=== PATIENT | female | born 2000 | race Caucasian/White ===

== ENCOUNTER 2022-07-15 14:20 | Inpatient (IN) | payer OTHER, SELFPAY ==
[2022-07-15] VITALS (18 sets, daily range): BP systolic 93–123; BP diastolic 56–85; PULSE 94–118; RESP 14–24; TEMP 36.2–37.1; O2SAT 96–100; BMI 35.3
[2022-07-15] MEDS: Lactated Ringers 1,000 ML 999 ML IV (14:22)
[2022-07-15] MEDS: Oxytocin 10 UNITS/ML Vial IM (14:30)
[2022-07-15] MEDS: Methylergonovine 0.2 MG/ML Ampul IM (14:34)
--- NOTE | 2022-07-15 14:50 | HP.PCM.OB_ITS ---
History and Physical Date of Admission: 07/15/22 HPI: 21-year-old G2, P2 day 0 status post with 9-minute shoulder dystocia presenting with hemorrhage. Patient had delivered this morning. Placenta delivered after 8 minutes. [facility]. Baby was transported to [facility] this morning, subsequently transported to [facility]. Patient transported and arrived to this afternoon. Patient lightheaded and having discomfort on admission. No fevers or chills, nausea or vomiting, diarrhea or constipation. Patient received several different herbal compounds after delivery to attempt to assist with bleeding. 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 Difficult labor and delivery per cleat layer. Patient had severe hip issues after delivery with difficulty walking and baby had seizures developing day 1. G2: Current today with 9-minute shoulder dystocia. No complications prior to delivery per pin maker. Medical history: Denies history of hypertension, thyroid issues, diabetes Surgical history: Denies Medications: Denies Allergies: Denies Family history: Denied history of complications with anesthesia, no other known medical history Review of system: Negative otherwise stated above Physical exam: Vital signs on admission: Pending being charted. Patient was hypotensive and tachycardic General: Patient lying flat in bed, pale, uncomfortable Cardiorespiratory: No increased effort Abdomen: Soft, tender Vaginal exam: No external lacerations to perineum noted, no labial hematoma or lacerations. On bimanual exam large amount of clot removed. Extremities: No edema Musculoskeletal: Movement equal throughout all extremities Neurologic: Cranial nerves II through XII grossly intact, no focal deficits Assessment & Plan Assessment/Plan (1) hemorrhage: PLAN: 21-year-old day 0 admitted with hemorrhage. ?Present within minutes upon patient's arrival. Patient seen and examined. Bedside ultrasound completed after exam completed noting large amount of clot in the endometrial cavity. 2 IV lines placed. Patient was given IM Methergine x1 and IM 10 milliunits of Pitocin. Patient typed and crossed for 2 units of blood with plan to transfuse immediately. Labs ordered and drawn: CBC, CMP, PT/INR, PTT, fibrinogen. Based on the physical exam, bedside ultrasound, vital signs, patient discomfort and pallor decision for surgical management was made. ?Plan for exam under anesthesia, suction dilation and curettage, possible laparotomy, possible hysterectomy. Explained to patient and and additional family at bedside that it was necessary to complete a thorough vaginal examination and remove blood clot from the endometrial cavity in order to help identify source and cause of bleeding and decrease bleeding. Discussed possibility of laparotomy and possible hysterectomy depending on findings and if bleeding does not able to be controlled with other measures would proceed for hysterectomy. All risk, benefits, alternatives were discussed with the patient and family. Risks include but are not limited to: Risk of bleeding to the point of transfusion, infection, injury to surrounding tissue including bowel/bladder requiring prolonged Gaming catheter use, VTE, ICU admission. All questions answered. Patient aware and consented. Patient consented and consented for blood products. ?Recommended transfusion of 2 units of PRBCs immediately. ?Worked in conjunction with bedside RN and nurse managers to coordinate surgical readiness and patient care. Patient taken back to the operating room for surgery.
[2022-07-15 14:51] LABS: Absolute Lymphocyte Count 1.19 X10^3/uL (0.83-4.51); Absolute Neutrophil Count 23.3 X10^3/uL (2.0-7.7); Basophil# 0.05 X10^3/uL; Basophil% 0.2 % (0-1); Eosinophil# 0.03 X10^3/uL; Eosinophils% 0.1 % (0-5); Hematocrit 30.2 % (37-47); Hemoglobin 10.3 g/dL (12.0-15.0); Lymphocyte # 1.19 X10^3/ul (0.83-4.51); Lymphocyte % 4.3 % (19-41); Mean Corp Hgb Conc 34.1 g/dL (32-36); Mean Corpuscular Hgb 29.2 pg (27.0-32.0); Mean Corpuscular Volume 85.6 fL (81-99); Mean Platelet Vol. 11.5 fl (6.2-12.0); Monocyte# 2.71 X10^3/uL; Monocyte% 9.8 % (0-10); NRBC Flagged by Analyzer 0 % (0-5); Neutrophil # 23.26 X10^3/uL (2.7-7.7); Neutrophil % 84.5 % (47-70); POSITIVE DIFFERENTIAL YES; Platelet Count 236 K/mm3 (150-450); RBC Distribution Width CV 16.1 % (11.6-14.6); RBC Distribution Width SD 50.2 fl (35.1-43.9); Red Blood Count 3.53 M/mm3 (4.2-5.4); White Blood Count 27.5 K/mm3 (4.4-11.0)
[2022-07-15 14:56] LABS: International Normalized Ratio 1.2; Prothrombin Time (Protime)PT. 14.7 SECONDS (11.7-14.9)
[2022-07-15 14:57] LABS: Partial Thromboplast Time 34.8 Seconds (24.1-36.2)
[2022-07-15 14:58] LABS: Fibrinogen 302 mg/dl (203-444)
[2022-07-15 15:04] LABS: ALB/GLOB Ratio 0.7 RATIO (0.9-2.4); AST(SGOT) 28 U/L (15-37); Alanine Aminotransfer ALT/SGPT 22 U/L (13-56); Albumin, Serum 2.1 g/dL (3.2-5.0); Alkaline Phosphatase 109 U/L (45-117); Anion Gap 10 (5-15); BUN 9 mg/dL (7-18); BUN/Creat Ratio 9.5 RATIO (10-20); Calcium,Total 8.1 mg/dL (8.5-10.1); Chloride 103 mmol/L (98-107); Creatinine, Serum 0.94 mg/dL (0.55-1.02); EST Glomerular Filtration Rate 78 mL/min (>60); Est Glom Filt Rate - Afr Amer 94 mL/min (>60); Estimated Creatinine Clearance 73.62 ml/min; Globulin 3.1 g/dL (2.2-4.2); Glucose 213 mg/dL (74-106); Potassium 4.3 mmol/L (3.5-5.1); Protein, Total 5.2 g/dL (6.4-8.2); Sodium Level 132 mmol/L (136-145)
[2022-07-15] MEDS: Cefazolin 2 GM in 0.9% Normal Saline 100 ML IV (15:05)
[2022-07-15 15:19] LABS: Differential Indicated SCAN CRITERIA MET
[2022-07-15 16:22] LABS: Anisocytosis RARE; Differential Comment SEE COMMENTS; Platelet Estimate ADEQUATE (ADEQ); Red Cell Morphology N CHROM NORMAL (NORM C&C)
[2022-07-15] MEDS: morphine 10 MG/ML Syringe 5 MG IV (17:33)
--- NOTE | 2022-07-15 17:47 | PCM.OPRPT ---
Report of Operation Date of Procedure: 07/15/22 Pre-Operative Diagnosis: hemorrhage Post-Operative Diagnosis: hemorrhage, cervical to uterine anterior rupture, posterior vaginal rupture Surgery/Procedure Performed:: Exam under anesthesia, exploratory laparotomy, repair of vaginal, cervical, uterine rupture Description of Surgical Findings:: See operative report for details. Surgeon: Nicolette Zamora corrosion technician: Colin Zamora Type of Anesthesia: General Specimen's removed: None Estimated Blood Loss (mL): 2L Fluids Replaced: 1500cc IVF, 2uPRBC Description of Procedure: Patient taken to the operating room and placed under general anesthesia. Patient placed in the dorsal lithotomy position prepped and draped in the usual sterile fashion. Blood clots removed from vaginal canal. No vaginal or perineal lacerations noted, no labial lacerations noted. No labial hematomas noted. Unable to fully visualize cervix after weighted speculum placed in posterior vagina and right angle retractor placed anteriorly. Bimanual exam completed again with palpation of posterior cervix, able to palpate lower portion of uterus and muscle. Anteriorly and towards the patient's right palpated defect in the cervix. When palpating this area appeared to be able to palpate directly to the anterior abdominal wall. At that time there was concern for uterine rupture. Decision for laparotomy and possible hysterectomy made. Patient draping removed. Placed in supine position. Called for assistance from Dr. Colin Zamora and NEENA. Prior to his arrival repeat vaginal exam was completed with the same above findings. Dr. Colin Zamora also did a vaginal exam prior to laparotomy. Decision for laparotomy confirmed after exam. Patient prepped and draped in the usual sterile fashion. Pfannenstiel skin incision made with scalpel carried down through subcutaneous tissue. Fascia nicked on either side of midline and extended with Calles scissors. Mitch clamps placed the superior fascial edge which was tented up and underlying rectus muscles were dissected off bluntly and sharply at midline. Mitch clamps moved to the inferior fascial edge which was tented up and underlying rectus muscles were dissected off bluntly and sharply at midline. Rectus muscles were noted to be . Peritoneum identified and entered using hemostats and further blunt dissection. Upon entry to abdominal cavity noted distended vesicouterine peritoneum which had ballooned significantly from the lower portion of bladder to midway to the the uterine fundus. This extended laterally as well towards the broad ligaments. Gaming bulb palpated low in the pelvis. Bladder blade placed. This vesicouterine peritoneum identified at the junction to the uterine serosa. This was incised with Metzenbaum scissors and careful dissection was completed across the anterior uterus. Blood clot removed from the space. Dissection of the vesicouterine peritoneum allowed exposure of area of rupture anteriorly. Thorough examination noted that the rupture included the cervix towards the left vagina inferiorly and towards the lower uterine segment, including a small portion of this. Uterus was exteriorized and inspected posteriorly. Uterus appeared intact posteriorly. Posteriorly vaginal defect was also palpated. This was then confirmed with palpation anteriorly inside vagina through anterior defect and visualization. Vaginal defect grasped with Allis clamps from within the vaginal canal. Closed with running stitch. Oozing noted, hemostatic with [id number] stitch. Uterus examined posteriorly: Vaginal defect no longer noted on visualization or palpation. [place] of anterior cervix/vaginal rupture identified and grasped with Allis clamps. This was closed with 1 [id number] stitch at the left inferior apex followed by additional [id number]-[id number] stitches. Left apical region was imbricated. Interrupted imbricating stitches placed at the right apex at the level of the cervix with hemostasis noted. Uterus then inspected posteriorly again, noting no defects. Visualization of anterior rupture repair completed., Noting hemostasis. Floseal placed. No evidence of broad ligament hematoma on either side. Uterus replaced into the abdominal cavity. Inspection completed again noting hemostasis. Peritoneum identified and closed in a running stitch. Fascia closed with a running stitch. Subcutaneous tissue irrigated and closed with interrupted stitches. Skin closed with a running subcuticular stitch. Vaginal exam completed with no vaginal defects noted. Rectal exam completed with no defects noted. At the end of the procedure all needle, lap, sponge counts were correct. Patient received 2 units of packed red blood cells intraoperatively. She also received tranexamic acid intraoperatively. We will plan to repeat CBC and BMP this evening at 2000, labs to repeat in the morning as well. Patient is to receive antibiotics for 24 hours. We will plan for Lovenox tomorrow. Maintain Gaming catheter. No fundal checks to be completed. Maintain IV. No further need for uterotonic agents as hemorrhage was secondary to cervical and vaginal defects. Plan reviewed with bedside RN. Admit VTE Documentation VTE Mechan Device Prophylaxis: SCD's
[2022-07-15] MEDS: Ketorolac 30 MG/ML Syringe IV ×2 (18:33→23:59)
[2022-07-15] MEDS: Lactated Ringers 1,000 ML 100 ML IV (18:33)
--- NOTE | 2022-07-15 19:41 | NURSING ---
no fundal exam performed per orders from Jakob cuadra
[2022-07-15] MEDS: HYDROmorphone 1 MG/ML Syringe IV (20:24)
[2022-07-15 20:36] LABS: Absolute Lymphocyte Count 1.23 X10^3/uL (0.83-4.51); Absolute Neutrophil Count 23.4 X10^3/uL (2.0-7.7); Basophil# 0.05 X10^3/uL; Basophil% 0.2 % (0-1); Eosinophil# 0.11 X10^3/uL; Eosinophils% 0.4 % (0-5); Hemoglobin 10.1 g/dL (12.0-15.0); Lymphocyte # 1.23 X10^3/ul (0.83-4.51); Lymphocyte % 4.6 % (19-41); Mean Corp Hgb Conc 32.6 g/dL (32-36); Mean Corpuscular Hgb 28.5 pg (27.0-32.0); Mean Corpuscular Volume 87.3 fL (81-99); Mean Platelet Vol. 11.1 fl (6.2-12.0); Monocyte# 1.81 X10^3/uL; Monocyte% 6.7 % (0-10); NRBC Flagged by Analyzer 0 % (0-5); Neutrophil # 23.43 X10^3/uL (2.7-7.7); Neutrophil % 87.1 % (47-70); POSITIVE DIFFERENTIAL YES; Platelet Count 186 K/mm3 (150-450); RBC Distribution Width CV 17.2 % (11.6-14.6); RBC Distribution Width SD 54.1 fl (35.1-43.9); Red Blood Count 3.55 M/mm3 (4.2-5.4); White Blood Count 26.9 K/mm3 (4.4-11.0)
[2022-07-15 20:43] LABS: Anion Gap 8 (5-15); BUN 9 mg/dL (7-18); BUN/Creat Ratio 12.7 RATIO (10-20); Calcium,Total 7.3 mg/dL (8.5-10.1); Chloride 107 mmol/L (98-107); Creatinine, Serum 0.71 mg/dL (0.55-1.02); EST Glomerular Filtration Rate 108 mL/min (>60); Est Glom Filt Rate - Afr Amer 130 mL/min (>60); Estimated Creatinine Clearance 97.47 ml/min; Glucose 165 mg/dL (74-106); Potassium 4.8 mmol/L (3.5-5.1); Sodium Level 134 mmol/L (136-145)
[2022-07-15 20:45] LABS: Differential Indicated SCAN CRITERIA MET
[2022-07-15 21:02] LABS: Differential Comment SEE COMMENTS; Platelet Estimate ADEQUATE (ADEQ)
[2022-07-15 21:03] LABS: Anisocytosis RARE; Red Cell Morphology N CHROM NORMAL (NORM C&C)
[2022-07-15] MEDS: Acetaminophen 500 MG Tablet 1000 MG PO (22:18)
--- NOTE | 2022-07-15 22:32 | PCM.PN.BLA ---
Progress Note Labs stable at 2000.Repeat pending in AM. Leukocytosis persistent likely secondary to acute stress reaction. No evidence of infection at this time.
[2022-07-16] VITALS (46 sets, daily range): BP systolic 104–132; BP diastolic 54–76; PULSE 92–144; RESP 16–20; TEMP 36.4–37.3; O2SAT 90–100
[2022-07-16] MEDS: Acetaminophen 500 MG Tablet 1000 MG PO ×3 (05:11→18:22)
--- NOTE | 2022-07-16 05:20 | PCM.PN.OB ---
Subjective Subjective Patient resting quietly in bed. Reports abdominal tenderness that is controlled with pain medication. Patient is pumping and hand expressing. Objective Data Objective Data Vital Signs: Vital Signs Temp Pulse Resp BP Pulse Ox O2 Del Method 97.2 F L 96 20 H 106/55 L 97 Room Air 07/15/22 19:39 07/16/22 05:14 07/16/22 05:14 07/16/22 05:14 07/15/22 20:30 07/16/22 05:14 Oxygen Delivery Method Room Air Weight: 87.543 kg Body Mass Index (BMI) 35.3 Intake & Output: Intake and Output for Last 24 Hours 07/14/22 07/15/22 07/16/22 23:59 23:59 23:59 Intake Total 1228.45 / 1228.45 1050 / 1050 Output Total 600 / 600 300 / 300 Balance 628.45 / 628.45 750 / 750 Lab / Micro Data Attestation: I reviewed the patient's lab results. Result Diagrams: 07/15/22 20:15 07/15/22 20:15 Labs: Laboratory Results - last 24 hr 07/15/22 14:30: WBC 27.5 H, RBC 3.53 L, Hgb 10.3 L, Hct 30.2 L, MCV 85.6, MCH 29.2, MCHC 34.1, RDW Std Deviation 50.2 H, RDW Coeff of Daniel 16.1 H, Plt Count 236, MPV 11.5, Immature Gran % (Auto) 1.100 H, Neut % (Auto) 84.5 H, Lymph % (Auto) 4.3 L, Wilson % (Auto) 9.8, Eos % (Auto) 0.1, Baso % (Auto) 0.2, Absolute Neuts (auto) 23.3 H, Absolute Lymphs (auto) 1.19, Nucleated RBC % 0, Differential Comment SEE COMMENTS, Diff Path Review May foll, Platelet Estimate ADEQUATE, RBC Morphology N CHROM, Anisocytosis RARE 07/15/22 14:30: PT 14.7, INR 1.2, APTT 34.8, Fibrinogen 302 07/15/22 14:30: Sodium 132 L, Potassium 4.3, Chloride 103, Carbon Dioxide 19.0 L, Anion Gap 10, BUN 9, Creatinine 0.94, Estim Creat Clear Calc 73.62, Est GFR (MDRD) Af Amer 94, Est GFR (MDRD) Non-Af 78, BUN/Creatinine Ratio 9.5 L, Glucose 213 H, Calcium 8.1 L, Total Bilirubin 0.30, AST 28, ALT 22, Alkaline Phosphatase 109, Total Protein 5.2 L, Albumin 2.1 L, Globulin 3.1, Albumin/Globulin Ratio 0.7 L 07/15/22 14:30: Blood Type O POSITIVE, Antibody Screen NEGATIVE, Crossmatch See Detail 07/15/22 20:15: Sodium 134 L, Potassium 4.8, Chloride 107, Carbon Dioxide 19.0 L, Anion Gap 8, BUN 9, Creatinine 0.71, Estim Creat Clear Calc 97.47, Est GFR (MDRD) Af Amer 130, Est GFR (MDRD) Non-Af 108, BUN/Creatinine Ratio 12.7, Glucose 165 H, Calcium 7.3 L 07/15/22 20:15: WBC 26.9 H, RBC 3.55 L, Hgb 10.1 L, Hct 31.0 L, MCV 87.3, MCH 28.5, MCHC 32.6, RDW Std Deviation 54.1 H, RDW Coeff of Daniel 17.2 H, Plt Count 186, MPV 11.1, Immature Gran % (Auto) 1.000 H, Neut % (Auto) 87.1 H, Lymph % (Auto) 4.6 L, Wilson % (Auto) 6.7, Eos % (Auto) 0.4, Baso % (Auto) 0.2, Absolute Neuts (auto) 23.4 H, Absolute Lymphs (auto) 1.23, Nucleated RBC % 0, Differential Comment SEE COMMENTS, Diff Path Review May foll, Platelet Estimate ADEQUATE, RBC Morphology N CHROM, Anisocytosis RARE Physical Exam Const alert, oriented x3 and no apparent distress HEENT normocephalic Head and Scalp: atraumatic Neck full ROM Resp normal respiratory effort Cardio regular rate GI normal to inspection, nondistended, normoactive bowel sounds GI Narrative: Uterus 2 cm below umbilicus, dressing clean and dry, mildly tender Back/Spine normal ROM Extremity normal to inspection Extremity Narrative: Minimal pedal edema Neuro no focal motor deficits and no sensory deficits noted Psych mental status grossly normal and affect normal Assessment & Plan (1) hemorrhage: PLAN: day 1 status post at [facility] with prolonged shoulder dystocia. Postoperative day 1 status post exam under anesthesia and exploratory laparotomy with repair of cervical/uterine/vaginal rupture. ?Patient received 2 units of PRBCs yesterday. CBC was stable postoperatively. Repeat pending this morning. Vital stable. ?Patient is pumping. Baby is in [facility]. ?Consider removing Gaming catheter later this afternoon. ?Encourage patient to get up to chair today. ?Continue Mefoxin for 24 hours. Diet: Plan to advance today IV fluids: LR 100 cc/hr DVT prophylaxis: Continue SCDs, Lovenox to start today Dispo: Continued inpatient management.
[2022-07-16 05:34] LABS: Hematocrit 24.5 % (37-47); Hemoglobin 8.1 g/dL (12.0-15.0); Mean Corp Hgb Conc 33.1 g/dL (32-36); Mean Corpuscular Hgb 28.1 pg (27.0-32.0); Mean Corpuscular Volume 85.1 fL (81-99); Mean Platelet Vol. 10.8 fl (6.2-12.0); Platelet Count 159 K/mm3 (150-450); RBC Distribution Width CV 17.2 % (11.6-14.6); RBC Distribution Width SD 53.2 fl (35.1-43.9); Red Blood Count 2.88 M/mm3 (4.2-5.4); White Blood Count 17.8 K/mm3 (4.4-11.0)
[2022-07-16] MEDS: Lactated Ringers 1,000 ML 100 ML IV (05:51)
[2022-07-16 06:07] LABS: Anion Gap 7 (5-15); BUN 12 mg/dL (7-18); BUN/Creat Ratio 15.7 RATIO (10-20); Calcium,Total 7.8 mg/dL (8.5-10.1); Chloride 106 mmol/L (98-107); Creatinine, Serum 0.76 mg/dL (0.55-1.02); EST Glomerular Filtration Rate 99 mL/min (>60); Est Glom Filt Rate - Afr Amer 120 mL/min (>60); Estimated Creatinine Clearance 91.05 ml/min; Glucose 112 mg/dL (74-106); Potassium 4.3 mmol/L (3.5-5.1); Sodium Level 135 mmol/L (136-145)
[2022-07-16] MEDS: Ketorolac 30 MG/ML Syringe IV ×2 (06:39→14:23)
[2022-07-16] MEDS: Enoxaparin 40 MG/0.4 ML Syringe SC (11:18)
[2022-07-16] MEDS: Senna/Docusate Sodium 1 Tablet PO (11:18)
[2022-07-16 13:35] LABS: Absolute Lymphocyte Count 1.93 X10^3/uL (0.83-4.51); Absolute Neutrophil Count 10.9 X10^3/uL (2.0-7.7); Basophil# 0.03 X10^3/uL; Basophil% 0.2 % (0-1); Eosinophil# 0.04 X10^3/uL; Eosinophils% 0.3 % (0-5); Hematocrit 22.3 % (37-47); Hemoglobin 7.6 g/dL (12.0-15.0); Lymphocyte # 1.93 X10^3/ul (0.83-4.51); Lymphocyte % 13.4 % (19-41); Mean Corp Hgb Conc 34.1 g/dL (32-36); Mean Corpuscular Hgb 29.1 pg (27.0-32.0); Mean Corpuscular Volume 85.4 fL (81-99); Monocyte# 1.42 X10^3/uL; Monocyte% 9.8 % (0-10); NRBC Flagged by Analyzer 0 % (0-5); Neutrophil % 75.4 % (47-70); Platelet Count 153 K/mm3 (150-450); RBC Distribution Width CV 17.3 % (11.6-14.6); RBC Distribution Width SD 53.2 fl (35.1-43.9); Red Blood Count 2.61 M/mm3 (4.2-5.4); White Blood Count 14.5 K/mm3 (4.4-11.0)
[2022-07-16 14:02] LABS: ALB/GLOB Ratio 0.6 RATIO (0.9-2.4); AST(SGOT) 31 U/L (15-37); Alanine Aminotransfer ALT/SGPT 21 U/L (13-56); Albumin, Serum 1.7 g/dL (3.2-5.0); Alkaline Phosphatase 75 U/L (45-117); Anion Gap 5 (5-15); BUN 13 mg/dL (7-18); Chloride 108 mmol/L (98-107); Creatinine, Serum 0.59 mg/dL (0.55-1.02); EST Glomerular Filtration Rate 133 mL/min (>60); Est Glom Filt Rate - Afr Amer 161 mL/min (>60); Estimated Creatinine Clearance 117.29 ml/min; Globulin 2.8 g/dL (2.2-4.2); Glucose 91 mg/dL (74-106); Potassium 4.3 mmol/L (3.5-5.1); Protein, Total 4.5 g/dL (6.4-8.2); Sodium Level 137 mmol/L (136-145)
--- NOTE | 2022-07-16 16:10 | CASEMGMT ---
Social Work Labor and Delivery Unit Consult received for Bereavement/Loss/Grief. Records reviewed and noted patient/mother of baby (DOROTHY) with an out of hospital delivery, reported 9 minute shoulder dystocia, infant development of seizures with subsequent admission into the [facility] and then to main [facility]. Met with MOB this date, introducing to self and social work role. MOB reports her mother is with MOB but had stepped out of the room briefly. Explored how MOB is doing. MOB reports to be getting along, that had a scare with the baby this morning but has reportedly learned from the father of baby (FOB) that things are not as bad as thought this morning. MOB reports FOB is on the way back to [place], so MOB and FOB will be able to better talk about what is going on. Explored with MOB how MOB's health is feeling right now, and whether MOB has awareness at this point regarding recommendations for MOB's future health and recovery. MOB reports the doctor will be in this evening to talk about MOB's health and will also know more. MOB shared she and FOB have been about about 2 years, have a 12 month old daughter Sierra at home and now baby boy (likely to be named Onel). MOB reports may have had some baby blues after Sierra was born, as Sierra was a fussy baby for the first three months of life while on phenobarbital. MOB reports Sierra also had seizures shortly after due to lack of oxygen to the brain during delivery. MOB reports once the phenobarbital was stopped Sierra was less fussy and MOB's emotions felt better. MOB reports to have a good support system from her family: parents, sister, FOB. MOB reports her sister is watching Sierra right now. MOB denies any abuse issues with the FOB. Attempted to educate MOB to depression and anxiety, risk factors, and is common after having a baby and going through unexpected events during labor and delivery. MOB accepted information on PPD/PPA. DOROTHY's mother did arrive back to room, and then shortly after the FOB, MOB's sister and Sierra. Emotional support offered to patient and family. MOB plans to discharge home when able. Social remains available for support as needed/indicated during hospital stay. -TO Waite, BLOCKING MACHINE TENDER
[2022-07-16] MEDS: 0.9% Normal Saline 1,000 ML 30 ML IV (17:00)
[2022-07-16] MEDS: Ibuprofen 600 MG Tablet PO (18:22)
[2022-07-16] MEDS: 0.9% Saline Lock 10 ML Syringe IV (19:38)
[2022-07-17] VITALS (9 sets, daily range): BP systolic 101–122; BP diastolic 51–67; PULSE 69–116; RESP 16–17; TEMP 36.3–37.3; O2SAT 96–99
[2022-07-17] MEDS: Ibuprofen 600 MG Tablet PO ×4 (00:27→18:25)
[2022-07-17] MEDS: Acetaminophen 500 MG Tablet 1000 MG PO ×4 (00:27→18:25)
[2022-07-17 06:55] LABS: Absolute Lymphocyte Count 2.13 X10^3/uL (0.83-4.51); Absolute Neutrophil Count 11.1 X10^3/uL (2.0-7.7); Basophil# 0.03 X10^3/uL; Basophil% 0.2 % (0-1); Eosinophil# 0.17 X10^3/uL; Eosinophils% 1.1 % (0-5); Hematocrit 22.4 % (37-47); Hemoglobin 7.5 g/dL (12.0-15.0); Lymphocyte # 2.13 X10^3/ul (0.83-4.51); Lymphocyte % 14.3 % (19-41); Mean Corp Hgb Conc 33.5 g/dL (32-36); Mean Corpuscular Hgb 29.3 pg (27.0-32.0); Mean Corpuscular Volume 87.5 fL (81-99); Mean Platelet Vol. 10.8 fl (6.2-12.0); Monocyte% 8.1 % (0-10); NRBC Flagged by Analyzer 0 % (0-5); Neutrophil % 74.6 % (47-70); Platelet Count 146 K/mm3 (150-450); RBC Distribution Width CV 17.3 % (11.6-14.6); RBC Distribution Width SD 56.2 fl (35.1-43.9); Red Blood Count 2.56 M/mm3 (4.2-5.4); White Blood Count 14.9 K/mm3 (4.4-11.0)
--- NOTE | 2022-07-17 08:23 | PN.OBGYN_ITS ---
Subjective Subjective No complaints. Denies dizziness, headaches, visual changes, weakness. Pain well controlled. Voiding spontaneously. Tolerating regular diet Objective Data Objective Data Vital Signs: Vital Signs Temp Pulse Resp BP Pulse Ox O2 Del Method 97.4 F L 108 H 16 112/63 96 Room Air 07/17/22 02:00 07/17/22 05:39 07/17/22 05:39 07/17/22 05:39 07/17/22 05:39 07/17/22 05:39 Oxygen Delivery Method Room Air Weight: 193 lb Body Mass Index (BMI) 35.3 Intake & Output: Intake and Output for Last 24 Hours 07/15/22 07/16/22 07/17/22 23:59 23:59 23:59 Intake Total 1228.45 / 1228.45 3614.17 / 3614.17 Output Total 600 / 600 1800 / 1800 Balance 628.45 / 628.45 1814.17 / 1814.17 Lab / Micro Data Result Diagrams: 07/17/22 06:45 07/16/22 13:25 Labs: Laboratory Results - last 24 hr 07/16/22 13:25: WBC 14.5 H, RBC 2.61 L, Hgb 7.6 L, Hct 22.3 L, MCV 85.4, MCH 29.1, MCHC 34.1, RDW Std Deviation 53.2 H, RDW Coeff of Daniel 17.3 H, Plt Count 153, MPV 11.0, Immature Gran % (Auto) 0.900, Neut % (Auto) 75.4 H, Lymph % (Auto) 13.4 L, [place] % (Auto) 9.8, Eos % (Auto) 0.3, Baso % (Auto) 0.2, Absolute Neuts (auto) 10.9 H, Absolute Lymphs (auto) 1.93, Nucleated RBC % 0 07/16/22 13:25: Sodium 137, Potassium 4.3, Chloride 108 H, Carbon Dioxide 24.0, Anion Gap 5, BUN 13, Creatinine 0.59, Estim Creat Clear Calc 117.29, Est GFR (MDRD) Af Amer 161, Est GFR (MDRD) Non-Af 133, BUN/Creatinine Ratio 22.0 H, Glucose 91, Calcium 8.0 L, Total Bilirubin 0.20, AST 31, ALT 21, Alkaline Phosphatase 75, Total Protein 4.5 L, Albumin 1.7 L, Globulin 2.8, Albumin/Globulin Ratio 0.6 L 07/16/22 14:30: Crossmatch See Detail 07/17/22 06:45: WBC 14.9 H, RBC 2.56 L, Hgb 7.5 L, Hct 22.4 L, MCV 87.5, MCH 29.3, MCHC 33.5, RDW Std Deviation 56.2 H, RDW Coeff of Daniel 17.3 H, Plt Count 146 L, MPV 10.8, Immature Gran % (Auto) 1.700 H, Neut % (Auto) 74.6 H, Lymph % (Auto) 14.3 L, [place] % (Auto) 8.1, Eos % (Auto) 1.1, Baso % (Auto) 0.2, Absolute Neuts (auto) 11.1 H, Absolute Lymphs (auto) 2.13, Nucleated RBC % 0 Physical Exam Const alert, oriented x3, no apparent distress, average body habitus, healthy appearing and well nourished HEENT normocephalic and moist oral mucous membranes Eyes PERRL Neck full ROM Resp normal respiratory effort and no retractions GI GI Narrative: Soft, nontender, bandage clean dry and intact Extremity normal to inspection, full ROM and no clubbing, cyanosis or edema Skin no rashes or lesions noted Neuro moves all extremities and no focal motor deficits Psych mental status grossly normal, affect normal, speech normal and activity/motor behavior normal Assessment & Plan (1) hemorrhage: PLAN: day 2 status post birthing center delivery with plastic tile layer complicated by shoulder dystocia. Postop day 2 of exploratory laparotomy and repair of uterine/cervical/vaginal abruption. Status post 3 units of packed red blood cells. Patient asymptomatic. We will continue to monitor hemoglobin, repeat hemoglobin at noon today. Status post Mefoxin x24 hours. Discussed clinical plan for today. Discussed evaluation at least to this evening and likely home tomorrow
[2022-07-17 09:58] LABS: Pathologist Review Reviewed
[2022-07-17 09:59] LABS: Pathologist Review Reviewed
[2022-07-17] MEDS: Enoxaparin 40 MG/0.4 ML Syringe SC (10:08)
[2022-07-17] MEDS: Senna/Docusate Sodium 1 Tablet PO (10:09)
[2022-07-17] MEDS: 0.9% Saline Lock 10 ML Syringe IV (10:09)
--- NOTE | 2022-07-17 12:30 | NURSING ---
this nurse talked with patient and family concerning her surgery and contraceptive options. Patient and family are sharing concerns about doing permanent sterilization and are interested in information about short term contraception. this nurse talked with patient and family about the concerns of patient getting again and having uterine rupture. Will collect information about short term contraception.
[2022-07-17 12:35] LABS: Absolute Lymphocyte Count 2.44 X10^3/uL (0.83-4.51); Absolute Neutrophil Count 13.5 X10^3/uL (2.0-7.7); Basophil# 0.06 X10^3/uL; Basophil% 0.3 % (0-1); Eosinophil# 0.23 X10^3/uL; Eosinophils% 1.3 % (0-5); Hematocrit 23.9 % (37-47); Lymphocyte # 2.44 X10^3/ul (0.83-4.51); Lymphocyte % 13.6 % (19-41); Mean Corp Hgb Conc 33.5 g/dL (32-36); Mean Corpuscular Hgb 29.1 pg (27.0-32.0); Mean Corpuscular Volume 86.9 fL (81-99); Monocyte# 1.39 X10^3/uL; Monocyte% 7.8 % (0-10); NRBC Flagged by Analyzer 0 % (0-5); Neutrophil # 13.48 X10^3/uL (2.7-7.7); Neutrophil % 75.2 % (47-70); Platelet Count 196 K/mm3 (150-450); RBC Distribution Width CV 17.7 % (11.6-14.6); RBC Distribution Width SD 55.8 fl (35.1-43.9); Red Blood Count 2.75 M/mm3 (4.2-5.4); White Blood Count 17.9 K/mm3 (4.4-11.0)
--- NOTE | 2022-07-17 17:29 | PCM.PN.OB ---
Subjective Subjective No complaints. Denies weakness, chest pain, shortness of breath Objective Data Objective Data Vital Signs: Vital Signs Temp Pulse Resp BP Pulse Ox O2 Del Method 98.3 F 116 H 16 122/66 H 96 Room Air 07/17/22 12:47 07/17/22 12:47 07/17/22 12:47 07/17/22 12:47 07/17/22 08:43 07/17/22 12:47 Oxygen Delivery Method Room Air Weight: 193 lb Body Mass Index (BMI) 35.3 Intake & Output: Intake and Output for Last 24 Hours 07/15/22 07/16/22 07/17/22 23:59 23:59 23:59 Intake Total 1228.45 / 1228.45 3614.17 / 3614.17 Output Total 600 / 600 1800 / 1800 Balance 628.45 / 628.45 1814.17 / 1814.17 Lab / Micro Data Result Diagrams: 07/17/22 12:10 07/16/22 13:25 Labs: Laboratory Results - last 24 hr 07/15/22 14:30: Diff Path Review Reviewed 07/15/22 20:15: Diff Path Review Reviewed 07/16/22 14:30: Crossmatch See Detail 07/17/22 06:45: WBC 14.9 H, RBC 2.56 L, Hgb 7.5 L, Hct 22.4 L, MCV 87.5, MCH 29.3, MCHC 33.5, RDW Std Deviation 56.2 H, RDW Coeff of Daniel 17.3 H, Plt Count 146 L, MPV 10.8, Immature Gran % (Auto) 1.700 H, Neut % (Auto) 74.6 H, Lymph % (Auto) 14.3 L, [place] % (Auto) 8.1, Eos % (Auto) 1.1, Baso % (Auto) 0.2, Absolute Neuts (auto) 11.1 H, Absolute Lymphs (auto) 2.13, Nucleated RBC % 0 07/17/22 12:10: WBC 17.9 H, RBC 2.75 L, Hgb 8.0 L, Hct 23.9 L, MCV 86.9, MCH 29.1, MCHC 33.5, RDW Std Deviation 55.8 H, RDW Coeff of Daniel 17.7 H, Plt Count 196, MPV 11.0, Immature Gran % (Auto) 1.800 H, Neut % (Auto) 75.2 H, Lymph % (Auto) 13.6 L, [place] % (Auto) 7.8, Eos % (Auto) 1.3, Baso % (Auto) 0.3, Absolute Neuts (auto) 13.5 H, Absolute Lymphs (auto) 2.44, Nucleated RBC % 0 Physical Exam Const alert, oriented x3, no apparent distress, average body habitus, healthy appearing and well nourished HEENT normocephalic and moist oral mucous membranes Eyes PERRL Neck full ROM Resp normal respiratory effort, no retractions and no use of accessory muscles Extremity normal to inspection, full ROM and no clubbing, cyanosis or edema Neuro moves all extremities and no focal motor deficits Psych mental status grossly normal, affect normal, speech normal and activity/motor behavior normal Assessment & Plan (1) hemorrhage: PLAN: Patient seen and examined. Patient, FOB, patient's mother, and patient's nuclear worker technician had questions about her surgical repair. Educated all green party members on surgical repair. Patient and green party members had questions about future pregnancies, discussed would not recommend future pregnancies based on risk for mother and baby. Well educated on surgical repair and its risk for future pregnancies including and hemorrhage for mom or baby. Patient and green party members state understanding. Patient and family with questions about control, discussed safety measures and most effective control options with patient and family. Patient and family state understanding all questions answered. We will continue to monitor patient possibly home tomorrow
[2022-07-17 18:45] LABS: Absolute Lymphocyte Count 2.37 X10^3/uL (0.83-4.51); Absolute Neutrophil Count 10.5 X10^3/uL (2.0-7.7); Basophil# 0.03 X10^3/uL; Basophil% 0.2 % (0-1); Eosinophil# 0.34 X10^3/uL; Eosinophils% 2.3 % (0-5); Hematocrit 20.8 % (37-47); Hemoglobin 7.1 g/dL (12.0-15.0); Lymphocyte # 2.37 X10^3/ul (0.83-4.51); Lymphocyte % 16.1 % (19-41); Mean Corp Hgb Conc 34.1 g/dL (32-36); Mean Corpuscular Hgb 29.7 pg (27.0-32.0); Monocyte# 1.17 X10^3/uL; NRBC Flagged by Analyzer 0 % (0-5); Neutrophil # 10.45 X10^3/uL (2.7-7.7); Neutrophil % 71.2 % (47-70); Platelet Count 171 K/mm3 (150-450); RBC Distribution Width CV 17.7 % (11.6-14.6); RBC Distribution Width SD 55.8 fl (35.1-43.9); Red Blood Count 2.39 M/mm3 (4.2-5.4); White Blood Count 14.7 K/mm3 (4.4-11.0)
[2022-07-18] MEDS: Ibuprofen 600 MG Tablet PO ×2 (00:39→06:00)
[2022-07-18 01:36] VITALS: BP 119/66; PULSE 98; RESP 16; TEMP 36.9
[2022-07-18 06:10] LABS: Absolute Lymphocyte Count 1.77 X10^3/uL (0.83-4.51); Absolute Neutrophil Count 8.3 X10^3/uL (2.0-7.7); Basophil# 0.05 X10^3/uL; Basophil% 0.4 % (0-1); Eosinophil# 0.46 X10^3/uL; Eosinophils% 3.9 % (0-5); Hematocrit 20.6 % (37-47); Hemoglobin 7.1 g/dL (12.0-15.0); Lymphocyte # 1.77 X10^3/ul (0.83-4.51); Lymphocyte % 15.2 % (19-41); Mean Corp Hgb Conc 34.5 g/dL (32-36); Mean Corpuscular Volume 86.9 fL (81-99); Mean Platelet Vol. 10.7 fl (6.2-12.0); Monocyte# 0.79 X10^3/uL; Monocyte% 6.8 % (0-10); NRBC Flagged by Analyzer 0 % (0-5); Neutrophil # 8.29 X10^3/uL (2.7-7.7); Neutrophil % 71.1 % (47-70); Platelet Count 172 K/mm3 (150-450); RBC Distribution Width CV 17.5 % (11.6-14.6); RBC Distribution Width SD 54.9 fl (35.1-43.9); Red Blood Count 2.37 M/mm3 (4.2-5.4); White Blood Count 11.7 K/mm3 (4.4-11.0)
--- NOTE | 2022-07-18 06:38 | DS.PCM_ITS ---
Discharge Summary Date of Admission: 07/15/22 Date of Discharge: 07/18/22 Summary: Patient arrived on 10/05 with no care, delivering at birthing center with poker prop player noted to have shoulder dystocia and arrived to hospital for evaluation for hemorrhage. Evaluation revealed uterine abruption. Exploratory laparotomy and repair of uterine, cervical, vaginal abruption/lacerations was performed on 07/15/2022. EBL 2 L, given 2 units packed red blood cells intraoperatively. Postoperative day 1 given 1 unit of packed red blood cells. Continue to monitor and discharge home on 07/18/2022 Meaningful Use Info Meaningful Use Diagnoses (Choose all that apply): None applicable Discharge Plan Admission Admit Date/Time: 07/15/22 14:20 Primary Reason for Your Visit: hemorrhage Attending Provider: Nicolette Zamora Instructions Additional Instructions / Restrictions: Regular diet. Okay to shower. No tub baths for 2 weeks. No intercourse for 6 to 8 weeks. No lifting over 15 pounds for 6 to 8 weeks. Call if fevers, chills, chest pain, shortness of breath. Follow-up 1 to 2 weeks in office Discharge Orders/Prescriptions Prescriptions: New oxycodone 5 mg Tablet 5 mg PO Q6H PRN PRN (Reason: Pain Score 7-10) 4 Days Qty: 16 0RF Disposition Disposition (needs filled in before D/C Order can be placed): Home, Self Care
--- NOTE | 2022-07-18 06:40 | PCM.PN.OB ---
Subjective Subjective No complaints. Denies dizziness, weakness, chest pain, shortness of breath Objective Data Objective Data Vital Signs: Vital Signs Temp Pulse Resp BP Pulse Ox O2 Del Method 98.5 F 98 16 119/66 99 Room Air 07/18/22 01:36 07/18/22 01:36 07/18/22 01:36 07/18/22 01:36 07/17/22 20:04 07/17/22 20:04 Oxygen Delivery Method Room Air Weight: 193 lb Body Mass Index (BMI) 35.3 Intake & Output: Intake and Output for Last 24 Hours 07/16/22 07/17/22 07/18/22 23:59 23:59 23:59 Intake Total 3614.17 / 3614.17 Output Total 1800 / 1800 Balance 1814.17 / 1814.17 Lab / Micro Data Result Diagrams: 07/18/22 06:00 07/16/22 13:25 Labs: Laboratory Results - last 24 hr 07/15/22 14:30: Diff Path Review Reviewed 07/15/22 20:15: Diff Path Review Reviewed 07/17/22 06:45: WBC 14.9 H, RBC 2.56 L, Hgb 7.5 L, Hct 22.4 L, MCV 87.5, MCH 29.3, MCHC 33.5, RDW Std Deviation 56.2 H, RDW Coeff of Daniel 17.3 H, Plt Count 146 L, MPV 10.8, Immature Gran % (Auto) 1.700 H, Neut % (Auto) 74.6 H, Lymph % (Auto) 14.3 L, Whitman % (Auto) 8.1, Eos % (Auto) 1.1, Baso % (Auto) 0.2, Absolute Neuts (auto) 11.1 H, Absolute Lymphs (auto) 2.13, Nucleated RBC % 0 07/17/22 12:10: WBC 17.9 H, RBC 2.75 L, Hgb 8.0 L, Hct 23.9 L, MCV 86.9, MCH 29.1, MCHC 33.5, RDW Std Deviation 55.8 H, RDW Coeff of Daniel 17.7 H, Plt Count 196, MPV 11.0, Immature Gran % (Auto) 1.800 H, Neut % (Auto) 75.2 H, Lymph % (Auto) 13.6 L, Whitman % (Auto) 7.8, Eos % (Auto) 1.3, Baso % (Auto) 0.3, Absolute Neuts (auto) 13.5 H, Absolute Lymphs (auto) 2.44, Nucleated RBC % 0 07/17/22 18:26: WBC 14.7 H, RBC 2.39 L, Hgb 7.1 L, Hct 20.8 L, MCV 87.0, MCH 29.7, MCHC 34.1, RDW Std Deviation 55.8 H, RDW Coeff of Daniel 17.7 H, Plt Count 171, MPV 11.0, Immature Gran % (Auto) 2.200 H, Neut % (Auto) 71.2 H, Lymph % (Auto) 16.1 L, Whitman % (Auto) 8.0, Eos % (Auto) 2.3, Baso % (Auto) 0.2, Absolute Neuts (auto) 10.5 H, Absolute Lymphs (auto) 2.37, Nucleated RBC % 0 07/18/22 06:00: WBC 11.7 H, RBC 2.37 L, Hgb 7.1 L, Hct 20.6 L, MCV 86.9, MCH 30.0, MCHC 34.5, RDW Std Deviation 54.9 H, RDW Coeff of Daniel 17.5 H, Plt Count 172, MPV 10.7, Immature Gran % (Auto) 2.600 H, Neut % (Auto) 71.1 H, Lymph % (Auto) 15.2 L, Whitman % (Auto) 6.8, Eos % (Auto) 3.9, Baso % (Auto) 0.4, Absolute Neuts (auto) 8.3 H, Absolute Lymphs (auto) 1.77, Nucleated RBC % 0 Physical Exam Const alert, oriented x3, no apparent distress, average body habitus, healthy appearing and well nourished HEENT normocephalic and moist oral mucous membranes Eyes PERRL Neck full ROM Resp normal respiratory effort, no retractions and no use of accessory muscles GI GI Narrative: Soft, nontender, bandage clean dry and intact Extremity normal to inspection, full ROM and no clubbing, cyanosis or edema Neuro moves all extremities and no focal motor deficits Psych mental status grossly normal, affect normal, speech normal and activity/motor behavior normal Assessment & Plan (1) hemorrhage: PLAN: Postop day 3 status post exploratory laparotomy and repair of uterine, cervical, vaginal abruption. Status post 3 units of packed red blood cells. Overall patient has remained stable and asymptomatic vital signs stable. Hemoglobin stabilized. Educated patient on findings, patient wishes discharge home. Reasonable, okay to discharge home to take iron at home. We will follow-up in office for repeat evaluation. Educated patient on incisional care and bandage care
[2022-07-18 08:32] VITALS: BP 122/71; PULSE 97; O2SAT 97
[2022-07-18 08:47] VITALS: BP 122/71; PULSE 103; RESP 16; TEMP 36.8; O2SAT 98
[2022-07-18 08:48] VITALS: PULSE 99; O2SAT 98
[2022-07-18] MEDS: Enoxaparin 40 MG/0.4 ML Syringe SC (10:19)
[2022-07-18] MEDS: Senna/Docusate Sodium 1 Tablet PO (10:19)
== END 2022-07-18 10:52 | disposition home or self-care (01) | DRG 769 ==
PROVIDERS: Obstetrics & Gynecology; Admitting Provider Student in an Organized Health Care Education/Training Program; Visit Provider Student in an Organized Health Care Education/Training Program
DX: O90.89 Other complications of the puerperium, not elsewhere classified (principal); O72.1 Other immediate postpartum hemorrhage; O99.893 Other specified diseases and conditions complicating puerperium; N85.8 Other specified noninflammatory disorders of uterus; N89.8 Other specified noninflammatory disorders of vagina
CPT/HCPCS: 36415; 80048; 80053; 85025; 85027; 85384; 85610; 85730; 86850; 86900; 86901; 86920; 86922; J7030; J7120; P9016; A4216; J2405